=== PATIENT | female | born 1945 | race Caucasian/White ===

== ENCOUNTER → 2017-09-05 | Outpatient (CLI) | payer OTHER, MEDICARE | END | disposition home or self-care (01) | LOC: SHCH 11:00 | PROVIDERS: ATTEND Internal Medicine Cardiovascular Disease | DX: I47.1 Supraventricular tachycardia (principal); R00.2 Palpitations | CPT/HCPCS: 93306 ==

== ENCOUNTER → 2017-09-10 | Outpatient (CLI) | payer OTHER, MEDICARE ==
[~2017-09-10] MED LIST: REGADENOSON 0.4 MG/5 ML PF SYG IVP SCH
== END | disposition home or self-care (01) ==
LOC: SHCH 08:19
PROVIDERS: ATTEND Internal Medicine Cardiovascular Disease
DX: I20.9 Angina pectoris, unspecified (principal); R06.00 Dyspnea, unspecified
CPT/HCPCS: 78452; 93017; 96374; A9500 ×2; J2785

== ENCOUNTER → 2020-03-19 | Outpatient (CLI) | payer OTHER, MEDICARE | END | disposition home or self-care (01) | LOC: SHCH 13:28 | PROVIDERS: ATTEND Internal Medicine Cardiovascular Disease | DX: I51.7 Cardiomegaly (principal); I47.1 Supraventricular tachycardia | CPT/HCPCS: 93306; 93356 ==

== ENCOUNTER 2023-09-10 19:47 | Observation (INO) | payer MEDICARE ==
[~2023-09-10] VITALS: Ht 152.4 cm; Wt 75.7 kg
[2023-09-10 20:48] LABS: BASOPHILS # (AUTO) 0.06 K/uL (0.00-0.20); BASOPHILS % (AUTO) 0.5 % (0.0-5.0); EOSINOPHILS # (AUTO) 0.02 K/uL (0.00-0.70); EOSINOPHILS % (AUTO) 0.2 % (0.0-8.0); HEMATOCRIT 42.4 % (36-48); IMMATURE GRANULOCYTE ABSOLUTE 0.11 K/uL (0-1); LYMPHOCYTES % (AUTO) 31.6 % (21.0-51.0); MEAN CORPUSCULAR HEMOGLOBIN 29.4 pg (27.0-33.0); MEAN CORPUSCULAR HGB CONC 33.5 g/dL (32.0-36.0); MEAN CORPUSCULAR VOLUME 87.8 fL (79-99); MONOCYTES % (AUTO) 7.8 % (3.0-13.0); NEUTROPHILS # (AUTO) 7.4 K/uL (1.8-7.7); PLATELET COUNT (AUTO) 417 K/uL (130-400); RED BLOOD CELL COUNT(AUTO) 4.83 MIL/uL (4.00-5.50); RED CELL DISTRIBUTION WIDTH 12.9 % (11.0-15.5); WHITE BLOOD COUNT (AUTO) 12.5 K/uL (4.8-10.8)
[2023-09-10 20:49] LABS: APPEARANCE,URINE CLEAR (CLEAR); BILIRUBIN,URINE NEGATIVE (NEGATIVE); COLOR,URINE COLORLESS (YELLOW); GLUCOSE, URINE (UA) NEGATIVE (NEGATIVE); KETONES,URINE NEGATIVE (NEGATIVE); LEUKOCYTE ESTERASE ,URINE NEGATIVE Leu/uL (NEGATIVE); NITRATE,URINE NEGATIVE (NEGATIVE); OCCULT BLOOD,URINE NEGATIVE (NEGATIVE); PROTEIN,URINE NEGATIVE (NEGATIVE); UROBILINOGEN,URINE 0.2 mg/dL (0.2-1.0)
[2023-09-10 20:53] LABS: ADD UA MICROSCOPIC YES
[2023-09-10 20:54] LABS: BACTERIA,URINE RARE /HPF (None Seen); MUCUS,URINE RARE LPF (None Seen); NON-SQUAMOUS EPITHELIAL CELL <1 /HPF (0-2); RBC,URINE 0-1 /HPF (0-1); SQUAMOUS EPITHELIAL CELL,UR RARE /HPF (0-2); WBC,URINE 0-1 /HPF (0-1)
[2023-09-10] MEDS ORDERED: CEFTRIAXONE 1G VIAL IVPB ONE (21:00)
[2023-09-10 21:01] LABS: CREATININE 0.7 mg/dL (0.5-1.5); POTASSIUM 3.7 mmol/L (3.5-5.1)
[2023-09-10 21:11] LABS: ALBUMIN 3.8 g/dL (3.5-5.0); BILIRUBIN,TOTAL 0.2 mg/dL (0.2-1.0); TOTAL PROTEIN, SERUM 7.3 g/dL (6.0-8.3)
[2023-09-10 21:49] LABS: RAPID GROUP A STREP negative (NEGATIVE)
[2023-09-10 21:56] LABS: SARS-CoV-2, RNA, NAAT NEGATIVE SARS CoV-2 (NEGATIVE)
[2023-09-10 22:00] LABS: INFLUENZA TYPE A Negative For Type A (NEGATIVE); INFLUENZA TYPE B Negative For Type B (NEGATIVE)
[2023-09-10] MEDS ORDERED: 0.9%NACL 1000ML 1,000 ML IV ONE (22:00)
[2023-09-10] MEDS ORDERED: PANTOPRAZOLE 40 MG/VIAL IVP ONE (23:00)
[2023-09-10] MEDS ORDERED: DICYCLOMINE 20MG (10MG/ML) AMP IM ONE (23:00)
[2023-09-11] MEDS ORDERED: IOHEXOL-350 75 ML VIAL IV ONE (00:11)
[2023-09-11] MEDS ORDERED: METOPROLOL TARTRATE 1 MG/ML 5ML VIAL IV ONE ×2 (01:00)
[2023-09-11] MEDS ORDERED: DILT60CA PO (01:37)
[2023-09-11] MEDS ORDERED: LOSA25TA41 PO (01:37)
[2023-09-11 02:30] LABS: ABG BASE EXCESS -1.5 mmol/L (-2.0-3.0); ABG OXYGEN SATURATION 97.8 % (95.0-99.0); ABG PCO2 30 mmHg (32-45); ABG PH 7.468 (7.35-7.450); DEVICE COMMENT ROOM AIR; PO2, ARTERIAL BG 96.3 mmHg (83.0-108.0); VENT MODE, BG ROOM AIR (ROOM AIR)
[2023-09-11] MEDS ORDERED: LACTULOSE 20 GM/30 ML UDCUP PO PRN (02:30)
[2023-09-11] MEDS ORDERED: 0.9%NACL 1000ML 1,000 ML IV SCH (02:30)
[2023-09-11] MEDS ORDERED: ACETAMINOPHEN 325 MG TAB PO PRN (02:30)
[2023-09-11] MEDS ORDERED: ONDANSETRON 4MG INJ IVP PRN (02:30)
[2023-09-11] MEDS ORDERED: LABETALOL 20MG SYG IV PRN (02:30)
[2023-09-11] MEDS ORDERED: CEFTRIAXONE 2GM VIAL ONE (08:49)
[2023-09-11] MEDS: DOCUSATE SODIUM 100 MG CAP PO SCH ×2 (09:24→21:15)
[2023-09-11] MEDS: ENOXAPARIN SODIUM 40 MG/0.4 ML SYRINGE SQ SCH (09:24)
[2023-09-11] MEDS: CEFTRIAXONE 2GM VIAL IVPB SCH (09:24)
[2023-09-11] MEDS ORDERED: CEFTRIAXONE 1G VIAL IVPB SCH (10:00)
[2023-09-11] MEDS ORDERED: LEVOFLOXACIN 750 MG TABLET PO SCH (16:30)
[2023-09-11] MEDS ORDERED: IPRATROPIUM 0.5 MG/2.5 ML INH IH SCH (16:30)
[2023-09-11] MEDS: SOLU-MEDROL 40MG VIAL IVP SCH (16:32)
[2023-09-11 16:44] VITALS: PULSE 68; RESP 18
[2023-09-11 16:46] VITALS: PULSE 67; RESP 18; O2SAT 98
[2023-09-11] MEDS ORDERED: HYDRALAZINE 20MG/ML VIAL IM PRN (17:30)
[2023-09-11 19:08] VITALS: PULSE 75; RESP 16
[2023-09-11] MEDS: IPRATROPIUM 0.5 MG/2.5 ML INH IH SCH ×2 (19:08→23:12)
[2023-09-11] MEDS: BUDESONIDE 0.5 MG/2 ML INH IH SCH (19:10)
[2023-09-11] MEDS ORDERED: BUDESONIDE 0.5 MG/2 ML INH IH ONE (19:23)
[2023-09-11] MEDS: DILTIAZEM HCL 60 MG PO SCH (21:09)
[2023-09-11] MEDS ORDERED: IBUPROFEN 600 MG TABLET ONE (22:04)
[2023-09-11] MEDS ORDERED: IBUPROFEN 600 MG TABLET PO PRN (22:30)
[2023-09-11 23:12] VITALS: PULSE 80; RESP 16
[2023-09-12] VITALS (14 sets, daily range): BP systolic 122–150; BP diastolic 66–82; PULSE 61–112; RESP 14–20; O2SAT 96–98
[2023-09-12] MEDS: SOLU-MEDROL 40MG VIAL IVP SCH ×3 (01:27→17:16)
[2023-09-12 03:52] LABS: BASOPHILS # (AUTO) 0.01 K/uL (0.00-0.20); BASOPHILS % (AUTO) 0.1 % (0.0-5.0); HEMATOCRIT 38.8 % (36-48); IMMATURE GRANULOCYTE ABSOLUTE 0.12 K/uL (0-1); LYMPHOCYTES # (AUTO) 1.3 K/uL (1.0-4.8); LYMPHOCYTES % (AUTO) 14.6 % (21.0-51.0); MEAN CORPUSCULAR HEMOGLOBIN 29.6 pg (27.0-33.0); MEAN CORPUSCULAR HGB CONC 33.8 g/dL (32.0-36.0); MEAN CORPUSCULAR VOLUME 87.8 fL (79-99); MONOCYTES # (AUTO) 0.1 K/uL (0.1-1.0); MONOCYTES % (AUTO) 1.3 % (3.0-13.0); NEUTROPHILS # (AUTO) 7.5 K/uL (1.8-7.7); NEUTROPHILS % (AUTO) 82.7 % (40.0-77.0); PLATELET COUNT (AUTO) 367 K/uL (130-400); RED BLOOD CELL COUNT(AUTO) 4.42 MIL/uL (4.00-5.50); RED CELL DISTRIBUTION WIDTH 12.6 % (11.0-15.5); WHITE BLOOD COUNT (AUTO) 9.1 K/uL (4.8-10.8)
[2023-09-12 04:02] LABS: % IRON SATURATION 17.7 % (22-44)
[2023-09-12 04:22] LABS: CREATININE 0.8 mg/dL (0.5-1.5); MAGNESIUM 1.8 mg/dL (1.80-2.40); PHOSPHORUS 3.5 mg/dL (2.5-4.9); POTASSIUM 3.7 mmol/L (3.5-5.1); THYROID STIMULATING HORMONE 0.64 uIU/mL (0.36-3.74)
[2023-09-12] MEDS: IPRATROPIUM 0.5 MG/2.5 ML INH IH SCH ×4 (06:22→23:40)
[2023-09-12] MEDS: DOCUSATE SODIUM 100 MG CAP PO SCH ×2 (08:12→20:28)
[2023-09-12] MEDS: LOSARTAN 25 MG TABLET PO SCH (08:12)
[2023-09-12] MEDS: CEFTRIAXONE 2GM VIAL IVPB SCH (08:13)
[2023-09-12] MEDS: DILTIAZEM HCL 60 MG PO SCH ×2 (08:18→21:00)
[2023-09-12] MEDS: ENOXAPARIN SODIUM 40 MG/0.4 ML SYRINGE SQ SCH (08:19)
[2023-09-12] MEDS: BUDESONIDE 0.5 MG/2 ML INH IH SCH ×2 (09:00→20:08)
[2023-09-12] MEDS ORDERED: METOPROLOL TARTRATE 1 MG/ML 5ML VIAL IV ONE (15:00)
[2023-09-12] MEDS ORDERED: DILTIAZEM 60MG TAB PO SCH (17:00)
[2023-09-12] MEDS ORDERED: PHARMACY COMMUNICATION MISC SCH (17:00)
[2023-09-12] MEDS: METOPROLOL SUCCINATE 25 MG TAB.SR.24H PO SCH (17:16)
[2023-09-12] MEDS: DOXYCYCLINE HYCLATE 100 MG TABLET PO SCH (20:28)
[2023-09-12] MEDS ORDERED: ALPRAZOLAM 0.25 MG TABLET ONE (23:54)
[2023-09-13] VITALS (9 sets, daily range): BP systolic 118–146; BP diastolic 62–86; PULSE 59–91; RESP 16–20; O2SAT 95–97
[2023-09-13] MEDS: SOLU-MEDROL 40MG VIAL IVP SCH ×2 (00:10→08:46)
[2023-09-13 05:11] LABS: BASOPHILS # (AUTO) 0.02 K/uL (0.00-0.20); BASOPHILS % (AUTO) 0.1 % (0.0-5.0); HEMATOCRIT 39.1 % (36-48); IMMATURE GRANULOCYTE ABSOLUTE 0.18 K/uL (0-1); LYMPHOCYTES # (AUTO) 1.6 K/uL (1.0-4.8); LYMPHOCYTES % (AUTO) 9.5 % (21.0-51.0); MEAN CORPUSCULAR HGB CONC 33.5 g/dL (32.0-36.0); MEAN CORPUSCULAR VOLUME 89.5 fL (79-99); MONOCYTES # (AUTO) 0.7 K/uL (0.1-1.0); MONOCYTES % (AUTO) 4.1 % (3.0-13.0); NEUTROPHILS # (AUTO) 14.1 K/uL (1.8-7.7); NEUTROPHILS % (AUTO) 85.2 % (40.0-77.0); PLATELET COUNT (AUTO) 358 K/uL (130-400); RED BLOOD CELL COUNT(AUTO) 4.37 MIL/uL (4.00-5.50); RED CELL DISTRIBUTION WIDTH 12.7 % (11.0-15.5); WHITE BLOOD COUNT (AUTO) 16.6 K/uL (4.8-10.8)
[2023-09-13 05:44] LABS: CREATININE 0.8 mg/dL (0.5-1.5); POTASSIUM 3.9 mmol/L (3.5-5.1); THYROID STIMULATING HORMONE 0.27 uIU/mL (0.36-3.74)
[2023-09-13 05:45] LABS: B-TYPE NATRIURETIC PEPTIDE 251 pg/mL (0-100)
[2023-09-13] MEDS: BUDESONIDE 0.5 MG/2 ML INH IH SCH (06:35)
[2023-09-13] MEDS: IPRATROPIUM 0.5 MG/2.5 ML INH IH SCH ×2 (06:35→11:14)
[2023-09-13] MEDS: METOPROLOL SUCCINATE 25 MG TAB.SR.24H PO SCH (08:46)
[2023-09-13] MEDS: CEFTRIAXONE 2GM VIAL IVPB SCH (08:46)
[2023-09-13] MEDS: DOCUSATE SODIUM 100 MG CAP PO SCH (08:46)
[2023-09-13] MEDS: DOXYCYCLINE HYCLATE 100 MG TABLET PO SCH (08:46)
[2023-09-13] MEDS: ENOXAPARIN SODIUM 40 MG/0.4 ML SYRINGE SQ SCH (08:46)
[2023-09-13] MEDS: DILTIAZEM HCL 60 MG PO SCH (08:46)
[2023-09-13] MEDS: LOSARTAN 25 MG TABLET PO SCH (08:46)
[2023-09-13] MEDS ORDERED: METO25TA3 PO (15:54)
[2023-09-13] MEDS ORDERED: DOXY100C5 PO (15:55)
[2023-09-14] MEDS ORDERED: PREDNISONE 20 MG TABLET PO SCH (09:00)
== END 2023-09-13 17:00 | disposition home or self-care (01) ==
LOC: EDH 19:47 → EDHIP 09-11 02:08 → 4DH 09-12 00:38
PROVIDERS: ADMIT Internal Medicine; ATTEND Internal Medicine
DX: J18.9 Pneumonia, unspecified organism (principal); Z20.822 Contact with and (suspected) exposure to COVID-19; J20.9 Acute bronchitis, unspecified; I10 Essential (primary) hypertension; I47.10 Supraventricular tachycardia, unspecified; F41.9 Anxiety disorder, unspecified; Z79.899 Other long term (current) drug therapy
CPT/HCPCS: 96376 ×3; 96372 ×4; 96375 ×2; 99285; 84484 ×4; 80053; 85025 ×3; 85378; 87880; 87804 ×2; 71270; 83605 ×2; 81001; 36415 ×4; 71046; 87635; 93005 ×3; 94640 ×9; 94664; 96361; 96365; 82803; 85651; 87040 ×2; 86140; 36600; 84145 ×2; 84443 ×2; 83540; 83550; 82550 ×3; 83735; 84100; 80048 ×2; 94760 ×2; 83880; 84439; 71045; 93306; 93356; J7030; J0696 ×4; C9113; J0500; G0378 ×59; J3490 ×2; J2920 ×5; J1650 ×3; Q9967

== ENCOUNTER 2024-03-11 09:55 | Emergency (ER) | payer MEDICARE ==
[~2024-03-11] VITALS: Ht 152.4 cm; Wt 77.1 kg
[~2024-03-11 09:55] MED LIST changes: +DILT60CA PO; +DOXY100C5 PO; +METO25TA3 PO; -REGADENOSON 0.4 MG/5 ML PF SYG IVP SCH
[2024-03-11 10:33] LABS: BASOPHILS # (AUTO) 0.08 K/uL (0.00-0.20); BASOPHILS % (AUTO) 0.9 % (0.0-5.0); EOSINOPHILS # (AUTO) 0.13 K/uL (0.00-0.70); EOSINOPHILS % (AUTO) 1.5 % (0.0-8.0); IMMATURE GRANULOCYTE ABSOLUTE 0.03 K/uL (0-1); LYMPHOCYTES # (AUTO) 2.7 K/uL (1.0-4.8); MEAN CORPUSCULAR HEMOGLOBIN 29.4 pg (27.0-33.0); MEAN CORPUSCULAR HGB CONC 33.7 g/dL (32.0-36.0); MONOCYTES # (AUTO) 0.8 K/uL (0.1-1.0); MONOCYTES % (AUTO) 8.7 % (3.0-13.0); NEUTROPHILS # (AUTO) 5.1 K/uL (1.8-7.7); NEUTROPHILS % (AUTO) 57.6 % (40.0-77.0); PLATELET COUNT (AUTO) 333 K/uL (130-400); RED BLOOD CELL COUNT(AUTO) 4.94 MIL/uL (4.00-5.50); WHITE BLOOD COUNT (AUTO) 8.8 K/uL (4.8-10.8)
[2024-03-11 10:51] LABS: CREATININE 0.8 mg/dL (0.5-1.0); POTASSIUM 4.2 mmol/L (3.5-5.1)
[2024-03-11 10:57] LABS: ALBUMIN 4.1 g/dL (3.5-5.0); BILIRUBIN,TOTAL 0.6 mg/dL (0.2-1.0); MAGNESIUM 1.8 mg/dL (1.80-2.40); TOTAL PROTEIN, SERUM 7.5 g/dL (6.0-8.3)
[2024-03-11] MEDS: KETOROLAC 15MG/ML VIAL (15MG/ML) IV ONE (11:39)
[2024-03-11] MEDS: FAMOTIDINE 20MG VIAL IV ONE (11:44)
[2024-03-11] MEDS ORDERED: ACET-2079 PO (12:41)
[2024-03-11 12:53] VITALS: BP 139/79; PULSE 79; RESP 20; O2SAT 99
== END 2024-03-11 13:07 | disposition home or self-care (01) ==
LOC: EDH 09:55
DX: R07.89 Other chest pain (principal); I10 Essential (primary) hypertension; E86.0 Dehydration; Z79.899 Other long term (current) drug therapy; Z88.5 Allergy status to narcotic agent; Z88.7 Allergy status to serum and vaccine; Z88.8 Allergy status to other drugs, medicaments and biological substances
CPT/HCPCS: 99285; 96374; 71045; 96375; 83735; 84484 ×2; 80053; 85025; 36415; 93005; J3490; J1885